=== PATIENT | female | born 1930 | race Caucasian/White ===

== ENCOUNTER 2016-09-10 23:00 | Inpatient (IN) | payer MEDICARE, BC ==
--- NOTE | ~2016-09-10 | HP ---
History And Physical [place] [id number] [facility] [place]. [address] NAME: ANITHA FERRARO : [birth year] STATUS : ADM Christal PAT#: [id number] AGE: 86 ADM/REG DATE : 09/10/16 MR#: [id number] REPORT SERV DATE: 09/11/16 DICTATED BY: MAKAYLA HARRIS DATE: 09/11/16 REPORT STATUS : Draft TRANSCRIBED BY: MODRadha DATE: 09/11/16 DATE OF ADMISSION: 09/10/2016 POINT OF ENTRY: [facility] Emergency Department. PRIMARY CARE PHYSICIAN: Yesika Prather DO. PRIMARY STORAGE FACILITY RENTAL CLERK: Waldo Morrison M.D., Ph.D, F.A.C.C. CHIEF COMPLAINT: Weakness and chest pain. HISTORY OF PRESENT ILLNESS: Ms Ferraro is an 86-year-old female with a history of coronary artery disease with prior coronary artery bypass grafting, hypertension, hyperlipidemia, as well as hypothyroidism, who presents to the emergency department today with multiple complaints including chest pain as well as weakness. The patient states that she felt fatigued and weak all week last week. She denies any other associated symptoms such as fevers, night sweats, chills, chest pain, shortness of breath, abdominal pain, nausea, vomiting, diarrhea, or constipation or dysuria. The patient states that she pretty much stayed in bed all week and with rest the weakness resolved on its own. She was in her usual state of health this week until she developed the acute onset of left- sided achy chest pain about 5:30 this evening. Denies any associated diaphoresis, nausea, vomiting, or shortness of breath, or radiation to the neck, arm, back, or jaw. It persisted throughout the afternoon, she took full-strength aspirin and presented to the emergency department. Initial evaluation in the emergency department was notable for EKG as well as cardiac enzymes, and a chest x-ray that were unremarkable. Labs notable for some mild dehydration with a BUN of 42, creatinine 1.29. White count is also elevated at 17,300. Urinalysis is pending at the time of dictation. She was subsequently admitted to the Hospitalist Service for further evaluation and management. REVIEW OF SYSTEMS: Comprehensive review of systems otherwise negative unless listed in history of present illness. PREVIOUS MEDICAL HISTORY: 1. Coronary artery disease with coronary artery bypass grafting. 2. Hypertension. 3. Hyperlipidemia. 4. Gastroesophageal reflux disease. 5. Hypothyroidism. 6. Osteoarthritis. 7. Hiatal hernia. 8. History of diverticulitis with sigmoid diverticular abscess. History And Physical [address] [place]. [address] NAME: ANITHA FERRARO : [birth year] STATUS : ADM Christal PAT#: [id number] AGE: 86 ADM/REG DATE : 09/10/16 MR#: [id number] REPORT SERV DATE: 09/11/16 DICTATED BY: MAKAYLA HARRIS DATE: 09/11/16 REPORT STATUS : Draft TRANSCRIBED BY: JOSÉ DATE: 09/11/16 9. Spinal stenosis. 10.Chronic pain, on chronic narcotics. PAST SURGICAL HISTORY: 1. Coronary artery bypass grafting. 2. Appendectomy. 3. Tonsillectomy. 4. Cataract surgery. 5. Left breast lumpectomy. 6. Neck lump resection. ALLERGIES: 1. SULFA DRUGS. 2. MOBIC. 3. DARVOCET. 4. MUCINEX. 5. CODEINE. 6. ADVIL. 7. GARLIC. 8. AMMONIA. 9. PEPPER. HOME MEDICATIONS: 1. Aspirin 81 mg daily. 2. FiberCon 5 mg q.h.s. 3. Caltrate with vitamin D 600 mg daily. 4. Move Free Ultra tablet, one tablet daily. 5. Carvedilol 12.5 mg b.i.d. 6. Klonopin 0.5 mg b.i.d. 7. Vitamin B12, 2500 mcg daily. 8. Nexium 40 mg daily. 9. Fentanyl topical patch 25 mcg/hour. 10.Ferrous sulfate 325 mg daily. 11.[place] 5/325 mg one tablet t.i.d. 12.Levothyroxine 75 mcg daily. 13.Lisinopril 5 mg q.h.s. 14.Red yeast one tablet daily. 15.Multivitamin one tablet daily. 16.MiraLAX one packet daily. 17.Colby red one tablet daily. SOCIAL HISTORY: Denies any tobacco, alcohol, or illicits. FAMILY MEDICAL HISTORY: Mother with stroke. Father of complications of a motor vehicle accident. Sibling, one sister who is healthy other than arthritis. LABS AND IMAGING: History And Physical [address] [place]. [address] NAME: ANITHA FERRARO : [birth year] STATUS : ADM Christal PAT#: [id number] AGE: 86 ADM/REG DATE : 09/10/16 MR#: [id number] REPORT SERV DATE: 09/11/16 DICTATED BY: MAKAYLA HARRIS DATE: 09/11/16 REPORT STATUS : Draft TRANSCRIBED BY: MODL DATE: 09/11/16 1. White count is 17.3, hemoglobin is 11.6, hematocrit is 34.6, platelet count is 368, and INR is 1.0. 2. Sodium is 130, potassium is 4.8, chloride is 100, carbon dioxide is 25, BUN is 42, creatinine is 1.29, glucose is 143, calcium is 9.2, and magnesium is 2.3. 3. Troponin is less than 0.02. 4. EKG per my review shows normal sinus rhythm with septal Q-waves, but no evidence of any acute ischemia or infarction. 5. Chest x-ray per my review shows no acute cardiopulmonary abnormality. PHYSICAL EXAMINATION: VITAL SIGNS: Temperature is 98.4 degrees Fahrenheit, pulse is 75, respirations 20, saturating 98% on room air, and blood pressure 185/76. On recheck, blood pressure is now 133/54, and pulse is 66. GENERAL: The patient is awake, alert, and in no acute distress. Resting comfortably in bed. She is a well-developed, well-nourished, elderly female. is at bedside. HEENT: Atraumatic and normocephalic. Slightly dry mucous membranes. Pupils equal, round, reactive to light and accommodation. Extraocular eye movements are intact. No scleral icterus. NECK: No jugular venous distention. No carotid bruits. CARDIAC: Regular rate and rhythm. No murmurs, rubs, or gallops. Normal S1, S2. LUNGS: Clear to auscultation bilaterally. No wheezes, rhonchi, or crackles. ABDOMEN: Soft, nontender, and nondistended. Good bowel sounds. No rebound, guarding, or rigidity. EXTREMITIES: Warm and well perfused. No cyanosis, clubbing, or edema. SKIN: Warm and dry. PSYCH: Affect appropriate. NEURO: Alert and oriented x3. Cranial nerves 2 through 12 grossly intact. Speech is normal. Gait not assessed. ASSESSMENT AND PLAN: Ms Ferraro is an 86-year-old female who presents with some weakness last week as well as acute onset of left-sided achy chest pain. PROBLEM LIST: 1. Chest pain. 2. Leukocytosis. 3. Acute kidney injury. 4. Hyponatremia. 5. Weakness. 6. History of hypothyroidism. PLAN: 1. Chest pain. EKG and cardiac enzymes are nonischemic at this time. We will continue to trend out cardiac enzymes. Schedule the patient for a stress test in the morning. Continue the patient's home daily aspirin and beta sera. We will place her on a low- dose statin. Checking a lipid panel as well as A1c. 2. Leukocytosis. Unclear etiology at this time as the patient denies any symptoms of underlying infectious etiology. Chest x-ray is clear. Urinalysis is pending. We have History And Physical [address] [address] NAME: ANITHA FERRARO : [birth year] STATUS : ADM Christal PAT#: [id number] AGE: 86 ADM/REG DATE : 09/10/16 MR#: [id number] REPORT SERV DATE: 09/11/16 DICTATED BY: MAKAYLA HARRIS DATE: 09/11/16 REPORT STATUS : Draft TRANSCRIBED BY: JOSÉ DATE: 09/11/16 also gotten blood cultures and a lactic acid. We will also check a procalcitonin. She is afebrile with stable vital signs. We will not order any antibiotics at this time. 3. Acute kidney injury. Holding the patient's lisinopril. Checking urine lytes as well as aggressive IV fluid hydration. 4. Hyponatremia. Again IV fluid hydration. 5. Weakness and fatigue. Unclear etiology at this time. Checking thyroid function studies, urinalysis as well as iron studies. I suspect it is due to her dehydration and hyponatremia. We will continue to monitor. 6. DVT prophylaxis. Lovenox subcu. CODE STATUS: The patient wished to be full code. BEVERLY/JOSÉ Makayla Harris MD / [id number] CC: MD Yesika Mcclain DO. William Oellerich, M.D., Ph.D, F.A.C.C.
--- NOTE | ~2016-09-10 | DS ---
Discharge Summary [facility] [address] [place]. [address] NAME: ANITHA FERRARO : [birth year] STATUS : DIS IN PAT#: [id number] AGE: 86 ADM/REG DATE : 09/11/16 MR#: [id number] REPORT SERV DATE: 09/13/16 DICTATED BY: CHANNING MCKAY DATE: 09/12/16 REPORT STATUS : Draft TRANSCRIBED BY: MODL DATE: 09/12/16 ADMISSION DATE: 09/11/2016 DISCHARGE DATE: 09/12/2016 The patient was admitted to the Hospitalist Service. CONSULTANTS: Dr. Waldo Morrison, Cardiology. DISCHARGE DIAGNOSES: 1. Atypical chest pain, resolved. 2. Weakness, resolved. 3. Hypertension. 4. Leukocytosis. 5. Acute kidney injury present on arrival, resolved. 6. Gastroesophageal reflux disease. 7. Chronic pain with spinal stenosis. 8. Coronary artery disease, status post coronary artery bypass graft. IMAGING AND DIAGNOSTICS: 1. CTA of the chest on September 11 revealed coronary artery disease, top-normal heart size. Lungs clear. No pulmonary embolus. Evidence for prior bypass procedure. Three benign appearing cystic structures in the liver are identified. Compared to a 2013 study shows that these are essentially unchanged and markedly decreased in size in the right hepatic lobe when compared to the prior study. 2. Chest x-ray, PA and lateral on September 10 revealed prior CABG, stable torturous ectatic aorta. No acute process otherwise demonstrated radiographically. 3. September 11, a nuclear medicine stress test revealed no ischemia, overall low risk vasodilator stress test. 4. September 11 echocardiogram revealed a normal EF 60%, mild diastolic dysfunction with normal RV size and systolic function. Mildly calcified aortic valve without stenosis. 5. Several 12-lead EKGs all similar to previous EKGs in 2015 reveals sinus rhythm; premature atrial complexes; inferior infarct, age undetermined; anterior infarct, age undetermined. Rate 87, QT corrected is 435 milliseconds. LABORATORY STUDIES: 1. Discharge laboratory studies on September 12 revealed a basic metabolic panel showing a sodium of 136, potassium 4.8, chloride 104, CO2 of 23, BUN 23, creatinine 0.81, GFR 65. Glucose 90, calcium 9.3, magnesium 2.1. A CBC on September 12 revealed a white count of 12.3, hemoglobin 11, hematocrit 33.2, platelets 276,000. 2. Hemoglobin A1c on September 11 5.9. 3. Urinalysis on September 10 was negative. 4. Blood cultures x2 no growth at one day, preliminary. 5. A lipid panel on September 11 revealed a cholesterol of 168, HDL 48, LDL 97, triglycerides 116. 6. Hepatic panel revealed total protein 5.9, albumin 2.9, total bilirubin 0.2, alkaline phosphatase 73, ALT 28, AST 9. Discharge Summary [address] [address] NAME: ANITHA FERRARO : [birth year] STATUS : DIS IN PAT#: [id number] AGE: 86 ADM/REG DATE : 09/11/16 MR#: [id number] REPORT SERV DATE: 09/13/16 DICTATED BY: CHANNING MCKAY DATE: 09/12/16 REPORT STATUS : Draft TRANSCRIBED BY: JOSÉ DATE: 09/12/16 7. Iron studies revealed an iron of 53, iron binding capacity 288, ferritin 102. 8. Serial cardiac biomarkers x4 revealed negative troponins at less than 0.02. HISTORY OF PRESENT ILLNESS: For complete history, please refer to admission H and P by Dr. Ganga Godinez. Briefly, Ms. Ferraro is a pleasant 86-year-old female, who presented to the emergency department on September 10 with complaints of weakness and chest pain. She states that she felt fatigued and weak for the prior week before coming to the emergency room. She denied any other associated symptoms. Prior to coming in about 5:30 in the evening, she developed some left-sided achy chest pain. Again, denying any associated symptoms. She took a full strength aspirin and presented to the emergency room. In the emergency room, she was noted to have an acute kidney injury/dehydration with a BUN of 42 and a creatinine of 1.29 with an elevated white count at 17.3 thousand. She was admitted to the Hospitalist Service for further evaluation and treatment. HOSPITAL COURSE: Ms. Ferraro was admitted to a telemetry bed with the initial diagnosis of chest pain, acute kidney injury, and elevated white blood count. A consultation was placed to her forest patrolman, Dr. Waldo Morrison for her chest pain. She was placed n.p.o. She had urinalysis done, which was negative. She had cardiac biomarkers, results as above. She was again n.p.o. after midnight for a nuclear stress test the following day. She was given IV fluids, DVT prophylaxis, antiemetics, and p.r.n. narcotics for pain control. I initially saw the patient on the afternoon of September 11 after her stress test and her echocardiogram. 15 minutes prior to my evaluation, the patient complained of left-sided chest tightness, nonradiating, no other associated symptoms. However, nurse did give her one sublingual nitroglycerin, and she had relief of her symptoms. She had no EKG changes, and with the results of her normal stress test and echocardiogram which showed the mild left ventricular diastolic dysfunction, a CTA of the chest was ordered and results are as above. Ms. Ferraro did have some significant hypertension overnight from September 11 until September 12. Post having her CTA done and returning to the floor, her blood pressure was over 200 systolic, and she was treated with IV hydralazine. I saw her in the morning of September 12, she was in no acute distress. She denied any chest pain since the episode yesterday afternoon. She was eating and drinking without difficulty. She had no shortness of breath, abdominal pain, or any other symptoms. Her vital signs were stable. Her blood pressure was elevated at 157/68 when she came in to the hospital. Her home lisinopril was held secondary to her acute kidney injury. This medication was restarted this morning. Other vital signs: Sinus rhythm, heart rate in the 60s, she was afebrile, respiratory rate was 16 to 18, respirations nonlabored. Lungs were clear to auscultation bilaterally. She does have a 1/6 systolic ejection murmur. Abdomen is soft and nontender. Active bowel sounds. All peripheral pulses palpable with no cyanosis, clubbing, or edema. On the night monitor, she was in sinus rhythm with a first-degree AV block. After discussing the test results with Ms. Ferraro and her , I informed them that I was going to resume her home dose lisinopril and hopes were to discharge her later this afternoon. Her IV fluids were discontinued, and she was instructed to be up ad victor manuel in her room. At 1600 hours today, I reassessed Ms. Ferraro. She continued to be pain free. No other symptoms. Her blood pressure was 109/55 and 137/61 after her lisinopril. With no further chest pain or any other symptoms, it was felt that she was able to be discharged home safely with close followup with her primary care provider, Dr. Yesika Prather in [place]. She had a previously appointment scheduled for this Saturday, I have asked her to keep that appointment. Discharge Summary [address] [place] [address] NAME: ANITHA FERRARO : [birth year] STATUS : DIS IN PAT#: [id number] AGE: 86 ADM/REG DATE : 09/11/16 MR#: [id number] REPORT SERV DATE: 09/13/16 DICTATED BY: CHANNING MCKAY DATE: 09/12/16 REPORT STATUS : Draft TRANSCRIBED BY: JOSÉ DATE: 09/12/16 I have also asked Ms. Ferraro to have blood work drawn at her followup appointment as her blood cultures have been negative to this point. Her white blood count has come down to 12.3 from initially 17.3, but there is no source of infection. She has been afebrile the entire hospitalization. Therefore, on the afternoon of September 12, she was discharged home in stable condition. DISCHARGE INSTRUCTIONS: Include, 1. Diet as tolerated. 2. Activity as tolerated. DISCHARGE MEDICATIONS: Are as follows, 1. Aspirin 81 mg p.o. daily. 2. FiberCon tab 5 mg p.o. at bedtime. 3. Caltrate plus D 600 mg p.o. with supper daily. 4. Move Free Ultra tablet 1 tablet p.o. daily. 5. Carvedilol 12.5 mg p.o. b.i.d. 6. Klonopin 0.25 to 0.5 mg p.o. b.i.d. p.r.n. 7. Vitamin B12 of 2500 mcg sublingual with supper. 8. Nexium 40 mg p.o. daily. 9. Fentanyl 75 mcg patch topically q.72 hours. 10.Ferrous sulfate 325 mg p.o. with lunch and supper. 11.Hydrocodone 5/325 mg one p.o. t.i.d. scheduled. 12.Synthroid 75 mcg 1 p.o. daily. 13.Lisinopril 5 mg p.o. daily at bedtime. 14.Red yeast cap 1 p.o. daily with supper. 15.Multivitamin 1 p.o. daily with supper. 16.MiraLAX powder daily before breakfast and preeti red 350 mg p.o. with supper. Other discharge instructions include again she will keep her followup appointment with her primary care provider this Saturday and have lab studies redrawn in the office at that time. She will follow up with Dr. Morrison in 3 weeks. The patient and her agree with this plan of care. WILLIAM/JOSÉ Susie Mckay [facility] / [id number] CC: MD Dr. Yesika Meadows M.D., Ph.D, F.A.C.C.
--- NOTE | ~2016-09-10 | CN ---
Consultation Report [facility] [address] [place]. [address] NAME: ANITHA FERRARO : [birth year] STATUS : ADM Christal PAT#: [id number] AGE: 86 ADM/REG DATE : 09/10/16 MR#: [id number] REPORT SERV DATE: 09/11/16 DICTATED BY: WALDO YOUNG DATE: 09/11/16 REPORT STATUS : Draft TRANSCRIBED BY: JOSÉ DATE: 09/11/16 CARDIOLOGY CONSULTATION DATE OF CONSULTATION: REASON FOR CONSULTATION: Chest pain. HISTORY OF PRESENT ILLNESS: Ms. Ferraro is an 86-year-old woman with a history of coronary artery disease and hypertension as well as reflux and hiatal hernia. She lives at home with her . She has been in her usual state of health, but over the past week, just has not felt well. She has felt weak and tired. She has been sitting around in her chair a lot for several days. She got out and got around over the weekend. She began to have some mild chest discomfort yesterday. It was persistent in nature. She took several aspirin and did not improve. She was concerned it could be her heart and came to the hospital. Her chest pain has lasted hours. She still has some sensation of some discomfort at this time. It somewhat involved the chest wall. Her troponins are negative. EKG shows no acute changes. There was no exertional component. She does have a mild leukocytosis and had some acute kidney injury with mildly elevated creatinine on admission. She has had no fevers or chills. No nausea or vomiting. No dyspnea. REVIEW OF SYSTEMS: The review of systems is as per the history of present illness. Ten other systems are negative. PAST MEDICAL HISTORY: 1. Coronary artery disease with previous bypass surgery. 2. Hypertension. 3. Reflux. 4. Hiatal hernia. FAMILY HISTORY: Noncontributory. SOCIAL HISTORY: The patient is . No current tobacco reported. ALLERGIES: PENDING. HOME MEDICATIONS: Pending. PHYSICAL EXAMINATION: VITAL SIGNS: Heart rate 60, blood pressure 151/59. GENERAL: The patient is a pleasant, elderly white female, in no apparent distress. HEENT: Conjunctivae are anicteric, no xanthelasma, lips without cyanosis. NECK: Supple, normal JVP, carotids +2 without bruit. LUNGS: Clear to auscultation bilaterally, no wheezes, rales or rhonchi. Consultation Report [place] [id number] [place]. [address] NAME: ANITHA FERRARO : [birth year] STATUS : ADM Christal PAT#: [id number] AGE: 86 ADM/REG DATE : 09/10/16 MR#: [id number] REPORT SERV DATE: 09/11/16 DICTATED BY: WALDO YOUNG DATE: 09/11/16 REPORT STATUS : Draft TRANSCRIBED BY: JOSÉ DATE: 09/11/16 CARDIOVASCULAR: Regular rate and rhythm. Normal S1 and S2 without S3. No murmur or rub. PMI is nondisplaced. ABDOMEN: Soft, nontender, nondistended, with normal bowel sounds. No hepatomegaly. EXTREMITIES: No clubbing, cyanosis or edema. NEURO/PSYCH: Alert and oriented to person, place and time. No obvious neurologic deficits. Mood and affect normal. DATA: Electrocardiogram shows sinus bradycardia with first degree AV block, poor R-wave progression. No acute ST-T wave changes. LABS: Significant for elevated potassium of 5.2; creatinine of 1.04, improved. Troponin negative x2. White blood cell count is 13.5, down from 17,000. IMPRESSION: 1. Atypical chest discomfort with negative troponin and EKG. 2. Weakness x1 week of unclear etiology. 3. Leukocytosis. 4. Acute kidney injury, improved. 5. Coronary artery disease, history of bypass surgery. 6. Hypertension. 7. Reflux. 8. Hiatal hernia. RECOMMENDATIONS: Ms. Ferraro presents with some atypical chest discomfort. She has an elevated white count and mild acute kidney injury. She had a generalized weakness of unclear etiology. With a negative troponin, I think this is unlikely to be coronary related. Cardiac testing has already been ordered, that could be done. You can give us a call if it is abnormal, but I think that medical management unless there is a high risk stress test given her symptoms, I am not sure that I would be aggressive in pursuing this until we know what else is going on with her creatinine and her white blood cell count. I will be away tomorrow and for the weekend, my partners are available if needed to be called. Thank you for this consultation. Please contact me if you have any further questions. WO/JOSÉ Waldo Young M.D., Ph.D, F.A.C.C. / [id number] CC: Ganga Godinez MD Consultation Report [address] [address] NAME: ANITHA FERRARO : [birth year] STATUS : ADM Christal PAT#: [id number] AGE: 86 ADM/REG DATE : 09/10/16 MR#: [id number] REPORT SERV DATE: 09/11/16 DICTATED BY: WALDO YOUNG DATE: 09/11/16 REPORT STATUS : Draft TRANSCRIBED BY: JOSÉ DATE: 09/11/16 [facility]
[2016-09-10 22:40] LABS: BASOPHILS 0.1 %; BASOPHILS ABSOLUTE 0.01 10/3/uL (0.0-0.16); EOSINOPHILS 0.1 %; EOSINOPHILS ABSOLUTE 0.02 10/3/uL (0.0-0.53); ER CBC TAT 0 Hrs 08 Mins; HEMOGLOBIN 11.6 g/dL (12.0-16.0); IMMATURE GRANULOCYTES 1.2 %; LYMPHOCYTES 10.2 %; LYMPHOCYTES ABSOLUTE 1.76 10/3/uL (0.67-4.30); MEAN CORPUS HGB CONC 33.5 g/dL (32.0-36.0); MEAN CORPUSCULAR HEMOGLOB 28.4 pg (26.0-34.0); MEAN CORPUSCULAR VOLUME 84.6 fL (80-100); MEAN PLATELET VOLUME 8.1 fL (9.2-13.0); MONOCYTES 6.4 %; NEUTROPHILS ABSOLUTE 14.23 10/3/uL (2.02-8.40); RED CELL COUNT 4.09 10/6/uL (4.0-5.6); WHITE BLOOD CELLS 17.3 10/3/uL (4.5-10.5)
[2016-09-10 22:41] LABS: HEMATOCRIT 34.6 % (36.0-48.0); MANUAL DIFF NO %; PLATELET COUNT 368 10/3/uL (150-400)
[2016-09-10 22:54] LABS: PARTIAL THROMBO TIME 27.1 SEC (22.5-37.2); PROTIME (NOT ORD) 12.9 SEC (12.0-14.5)
[2016-09-10 22:55] LABS: CALCIUM, SERUM 9.2 MG/DL (8.5-10.4); CHEST PAIN PROFILE TAT 0 Hrs 23 Mins; CHLORIDE, SERUM 100 MMOL/L (96-112); CO2 (CARBON DIOXIDE) 25 MMOL/L (24-34); POTASSIUM, SERUM 4.8 MMOL/L (3.5-5.3); SODIUM, SERUM 130 MMOL/L (135-148); TROPONIN I <0.02 NG/ML (<0.05)
[2016-09-10 22:57] LABS: BUN (BLOOD UREA NITROGEN) 42 MG/DL (6-23); CREATININE 1.29 MG/DL (0.55-1.02); GFR AFRICAN AMERICAN 43 ML/MIN (>=60); GFR NON AFRICAN AMERICAN 37 ML/MIN (>=60); GLUCOSE, SERUM 143 MG/DL (60-99)
[~2016-09-10 23:00] MED LIST: AUG500 PO; CO-Q-10 PO; COREG12 PO; DURA75 TOP; FLAG500TAB PO; GLUCCHONDR PO; HALF81 PO; HCTZ PO; IRON325 MG PO; KLONO5 PO; L20 PO; LEVAQUIN750 MG PO; MIRALAXPKT PO; MOVE FREE ULTRA PO; NEXIUM40 PO; NORCO1 TA1 PO; NUCYNTA50 MG PO; OS500+D PO; PRIN20 PO; STOOL SOFTEN100 MG PO; SYN.05 PO; SYN075 PO; VITAMIN B-122500 MCG SL; ZOCOR20 PO; ZOFRAN4 PO; [UNRECOGNIZED DRUG - OTHER]; [UNRECOGNIZED DRUG - OTHER] PO; [UNRECOGNIZED DRUG - OTHER] PO
[2016-09-10] MEDS ORDERED: NEXIUM40 PO (23:42)
[2016-09-10] MEDS ORDERED: MIRALAX POWDER1 PKT PO (23:43)
[2016-09-10] MEDS ORDERED: MOVE FREE ULTR1 EAC1 PO (23:43)
[2016-09-10] MEDS ORDERED: NORCO1 TA1 PO (23:43)
[2016-09-10] MEDS ORDERED: ASAB PO ×2 (23:44→23:45)
[2016-09-10] MEDS ORDERED: SYN075 PO (23:44)
[2016-09-10] MEDS ORDERED: COREG12 PO (23:44)
[2016-09-10] MEDS ORDERED: FERROUS SULF325 M1 PO (23:45)
[2016-09-10] MEDS ORDERED: CENTRUM PO (23:45)
[2016-09-10] MEDS ORDERED: CALTRA600D PO (23:45)
[2016-09-10] MEDS ORDERED: VITAMIN B-122500 MCG SL (23:46)
[2016-09-10] MEDS ORDERED: MEGA-RED PO (23:46)
[2016-09-10] MEDS ORDERED: RED YEAS1 PO (23:46)
[2016-09-10] MEDS ORDERED: FIBERCON PO (23:47)
[2016-09-10] MEDS ORDERED: PRIN5 PO (23:47)
[2016-09-10] MEDS ORDERED: KLONO5 PO (23:48)
[2016-09-10] MEDS ORDERED: DURA75 TOP (23:49)
[2016-09-11 00:55] LABS: ASCORBIC ACID (UR NOT ORDER) NEG (NEG); BILIRUBIN, URINE NEGATIVE (NEG); ER URINALYSIS TAT 0 Hrs 00 Mins; KETONE, URINE NEGATIVE (NEG); LEUKOCYTE ESTERASE(NOT OR NEG (NEG); NITRITE (URINE) NEG (NEG); WBC (NOT ORDERED) (RFLEX) 1 (0-5)
[2016-09-11 05:02] LABS: BASOPHILS 0 %; EOSINOPHILS 0.2 %; EOSINOPHILS ABSOLUTE 0.03 10/3/uL (0.0-0.53); HEMATOCRIT 32.6 % (36.0-48.0); HEMOGLOBIN 10.8 g/dL (12.0-16.0); IMMATURE GRANULOCYTES 1.1 %; IMMATURE GRANULOCYTES ABSOLUTE 0.15 10/3/uL (0.0-0.11); LYMPHOCYTES 12.5 %; LYMPHOCYTES ABSOLUTE 1.69 10/3/uL (0.67-4.30); MEAN CORPUS HGB CONC 33.1 g/dL (32.0-36.0); MEAN CORPUSCULAR VOLUME 84.5 fL (80-100); MEAN PLATELET VOLUME 8.2 fL (9.2-13.0); MONOCYTES 7.9 %; MONOCYTES ABSOLUTE 1.06 10/3/uL (0.21-1.20); NEUTROPHILS 78.3 %; NEUTROPHILS ABSOLUTE 10.57 10/3/uL (2.02-8.40); PLATELET COUNT 317 10/3/uL (150-400); RBC DISTRIBUTION WIDTH 13.8 % (12.0-16.0); RED CELL COUNT 3.86 10/6/uL (4.0-5.6); WHITE BLOOD CELLS 13.5 10/3/uL (4.5-10.5)
[2016-09-11 05:07] LABS: MANUAL DIFF NO %
[2016-09-11 05:36] LABS: CALCIUM, SERUM 8.9 MG/DL (8.5-10.4); CHLORIDE, SERUM 103 MMOL/L (96-112); CO2 (CARBON DIOXIDE) 23 MMOL/L (24-34); CREATININE 1.04 MG/DL (0.55-1.02); FERRITIN 102 NG/ML (8-252); FREE T4 1.03 NG/DL (0.76-1.46); GFR AFRICAN AMERICAN 56 ML/MIN (>=60); GFR NON AFRICAN AMERICAN 48 ML/MIN (>=60); HDL CHOLESTEROL 48 MG/DL (> 49); IRON BINDING CAPACITY 288 MCG/DL (225-410); IRON, SERUM 53 MCG/DL (35-150); POTASSIUM, SERUM 5.2 MMOL/L (3.5-5.3); SODIUM, SERUM 136 MMOL/L (135-148); TROPONIN I <0.02 NG/ML (<0.05)
[2016-09-11 05:46] LABS: ALBUMIN 2.9 G/DL (3.5-5.0); BUN (BLOOD UREA NITROGEN) 38 MG/DL (6-23); CHOL/HDL RATIO(NOT ORDER) 3.5 (0-5); CHOLESTEROL 168 MG/DL (< 200); CK-MB 1.4 NG/ML; CPK 19 U/L (0-200); GLUCOSE, SERUM 112 MG/DL (60-99); LDL CHOLESTEROL 97 MG/DL (< 130); NON-HDL CHOLESTEROL 120 MG/DL (< 160); PHOSPHORUS, SERUM 2.9 MG/DL (2.5-4.5); TRIGLYCERIDE 116 MG/DL (< 150); ULTRASENSITIVE TSH 0.391 MCIU/ML (0.358-3.740)
[2016-09-11 14:00] LABS: ALKALINE PHOSPHATASE 73 U/L (45-117); DIRECT BILIRUBIN < 0.1 MG/DL (0.0-0.4); INDIRECT BILIRUBIN(NOT ORDER) 0.1 MG/DL (0.1-0.9); SGOT(AST) 9 U/L (5-40); SGPT(ALT) 28 U/L (5-65); TOTAL BILIRUBIN 0.2 MG/DL (0-1.2); TOTAL PROTEIN 5.9 G/DL (6.0-8.5)
[2016-09-11 14:24] LABS: PROCALCITONIN <0.05 ng/mL (<0.5)
[2016-09-11 15:30] LABS: CPK 20 U/L (0-200); TROPONIN I <0.02 NG/ML (<0.05)
[2016-09-11 21:53] LABS: CPK 21 U/L (0-200); TROPONIN I <0.02 NG/ML (<0.05)
[2016-09-11 21:55] LABS: CK-MB 1.1 NG/ML
[2016-09-12 05:58] LABS: BASOPHILS 0.1 %; BASOPHILS ABSOLUTE 0.01 10/3/uL (0.0-0.16); EOSINOPHILS 0.5 %; EOSINOPHILS ABSOLUTE 0.06 10/3/uL (0.0-0.53); HEMATOCRIT 33.2 % (36.0-48.0); IMMATURE GRANULOCYTES 0.6 %; IMMATURE GRANULOCYTES ABSOLUTE 0.08 10/3/uL (0.0-0.11); LYMPHOCYTES 17.1 %; LYMPHOCYTES ABSOLUTE 2.11 10/3/uL (0.67-4.30); MEAN CORPUS HGB CONC 33.1 g/dL (32.0-36.0); MEAN CORPUSCULAR HEMOGLOB 28.1 pg (26.0-34.0); MEAN CORPUSCULAR VOLUME 84.9 fL (80-100); MONOCYTES 7.3 %; NEUTROPHILS 74.4 %; NEUTROPHILS ABSOLUTE 9.15 10/3/uL (2.02-8.40); PLATELET COUNT 276 10/3/uL (150-400); RBC DISTRIBUTION WIDTH 14.1 % (12.0-16.0); RED CELL COUNT 3.91 10/6/uL (4.0-5.6); WHITE BLOOD CELLS 12.3 10/3/uL (4.5-10.5)
[2016-09-12 05:59] LABS: MANUAL DIFF NO %
[2016-09-12 06:09] LABS: CALCIUM, SERUM 9.3 MG/DL (8.5-10.4); CHLORIDE, SERUM 104 MMOL/L (96-112); CO2 (CARBON DIOXIDE) 23 MMOL/L (24-34); CREATININE 0.81 MG/DL (0.55-1.02); GFR AFRICAN AMERICAN 75 ML/MIN (>=60); GFR NON AFRICAN AMERICAN 65 ML/MIN (>=60); GLUCOSE, SERUM 90 MG/DL (60-99); POTASSIUM, SERUM 4.8 MMOL/L (3.5-5.3); SODIUM, SERUM 136 MMOL/L (135-148)
[2016-09-12 06:13] LABS: BUN (BLOOD UREA NITROGEN) 23 MG/DL (6-23)
[2016-11-18] MEDS ORDERED: NEXIUM40 PO (03:35)
[2016-11-18] MEDS ORDERED: NORCO1 TA1 PO (03:36)
[2016-11-18] MEDS ORDERED: COREG12 PO (03:36)
[2016-11-18] MEDS ORDERED: FERROUS SULFATE PO (03:37)
[2016-11-18] MEDS ORDERED: ASAB (03:37)
[2016-11-18] MEDS ORDERED: SYN075 PO (03:37)
[2016-11-18] MEDS ORDERED: CALTRA600D PO (03:38)
[2016-11-18] MEDS ORDERED: CENTRUM (03:38)
[2016-11-18] MEDS ORDERED: RED YEAS1 PO (03:38)
[2016-11-18] MEDS ORDERED: B-12 PO (03:39)
[2016-11-18] MEDS ORDERED: PRIN5 PO (03:42)
[2016-11-18] MEDS ORDERED: MEGA RED PO (03:42)
[2016-11-18] MEDS ORDERED: DURA75 TOP (03:43)
[2016-11-18] MEDS ORDERED: KLONO5 PO (03:43)
[2016-11-21] MEDS ORDERED: MCZ25 (09:46)
[2016-11-21] MEDS ORDERED: ZOFRAN4 (09:46)
== END 2016-09-12 18:21 | disposition home or self-care (01) | DRG 683 ==
LOC: ER 23:00 → CDU1 23:59 → 6NO 09-11 22:19
PROVIDERS: Hospitalist; Internal Medicine; Nurse Practitioner
DX: N17.9 Acute kidney failure, unspecified (principal); E87.1 Hypo-osmolality and hyponatremia; E86.0 Dehydration; Z95.1 Presence of aortocoronary bypass graft; R07.89 Other chest pain; I25.10 Atherosclerotic heart disease of native coronary artery without angina pectoris; I10 Essential (primary) hypertension; E78.5 Hyperlipidemia, unspecified; K44.9 Diaphragmatic hernia without obstruction or gangrene; G89.29 Other chronic pain; M19.90 Unspecified osteoarthritis, unspecified site; M48.00 Spinal stenosis, site unspecified; E03.9 Hypothyroidism, unspecified; K21.9 Gastro-esophageal reflux disease without esophagitis; Z88.2 Allergy status to sulfonamides; Z88.5 Allergy status to narcotic agent; Z88.6 Allergy status to analgesic agent; Z91.018 Allergy to other foods; Z82.3 Family history of stroke; Z79.891 Long term (current) use of opiate analgesic
CPT/HCPCS: 71020; 71275; 78452; 80048; 80061; 80069; 80076; 81001; 82550; 82553; 82728; 83036; 83540; 83550; 83605; 83735; 84145; 84439; 84443; 84484; 85025; 85610; 85730; 87040; 93005; 93017; 93306; 99285; A9270-GY; A9502; J0153; J0360; Q9967